=== PATIENT | female | born 1940 | race Caucasian/White ===

== ENCOUNTER → 2017-11-04 | Outpatient (CLI) | payer MEDICARE | END | disposition home or self-care (01) | LOC: LAB 16:42 → LAB SHORT 16:42 | DX: L08.9 Local infection of the skin and subcutaneous tissue, unspecified (principal) | CPT/HCPCS: 87070; 87075; 87205 ==

== ENCOUNTER 2023-08-17 12:50 | Inpatient (IN) | payer MEDICARE ==
[~2023-08-17] VITALS: Ht 152.4 cm; Wt 38.3 kg
[2023-08-17 13:19] LABS: Hematocrit 41.6 % (33.0-51.0); Hemoglobin 13.6 g/dL (11.5-16.0); Mean Corpuscular HGB 29.4 pg (26.0-34.0); Mean Corpuscular HGB Conc 32.7 g/dL (31.5-36.5); Mean Corpuscular Volume 90 fL (80-100); Mean Platelet Volume 9.2 fL (9.1-12.4); Platelet Count 286 K/mm3 (150-400); RDW Coefficient Variation 13.3 % (11.7-14.2); RDW Standard Deviation 44.1 fL (35.1-46.3); Red Blood Cell Count 4.62 M/mm3 (3.80-5.20)
[2023-08-17 13:37] LABS: Albumin, Blood 3.6 g/dL (3.4-5.0); Albumin/Globulin Ratio 1.3 (0.8-1.8); Bilirubin, Total 0.8 mg/dL (0.1-1.0); Bun/Creatinine Ratio 24.1 (12.0-20.0); Calcium, Blood 9.2 mg/dL (8.5-10.1); Creatinine, Blood 1.16 mg/dL (0.40-1.00); Globulin, Blood 2.8 g/dL (2.2-4.0); Potassium, Blood 4.4 mmol/L (3.5-5.5); Total Protein, Blood 6.4 g/dL (6.4-8.2)
[2023-08-17 13:41] LABS: BASOPHILS ABSOLUTE MAN 0.15 K/mm3 (0.00-0.23); BASOPHILS PERCENT MAN 1 % (0-2); EOSINOPHILS PERCENT MAN 0 % (0-6); LYMPHOCYTES ABSOLUTE MAN 5.77 K/mm3 (0.84-5.20); LYMPHOCYTES PERCENT MAN 38 % (21-46); MONOCYTES PERCENT MAN 2 % (4-13); NEUTROPHILS ABSOLUTE MAN 8.96 K/mm3 (1.96-9.15); SEG NEUTROPHILS PERCENT MAN 59 % (41-73); TOTAL CELLS COUNTED 100
[2023-08-17] MEDS ORDERED: Furosemide 10 MG / ML 2ML Vial IV ONE (15:10)
[2023-08-17] MEDS ORDERED: Furosemide 10 MG / ML 2ML Vial IV STA (16:08)
[2023-08-17] MEDS ORDERED: FLU VACC QS2023-24(6MOS UP)/PF 60 MCG/0.5 ML SYRINGE IM SCH (16:10)
[2023-08-17] MEDS ORDERED: Ondansetron HCl 2 MG / ML 2ML Vial IV PRN (16:15)
[2023-08-17] MEDS ORDERED: Acetaminophen 325 MG TABLET PO PRN (16:15)
[2023-08-17 17:48] VITALS: BP 157/118
--- NOTE | 2023-08-17 18:34 | NUR ---
ER ADMIT Patient admitted for Acute CHF. IV Lasix administred in the ER. Patient alert & oriented x4, independent in the rooms. Lungs clear, no SOB noted. BLE +2 pitting edema, capillary refill >3sec. No other skin issues noted on extremities. Patient declined skin check, said she is continent and has no skin issues. Explained [facility] admit policies, patient verbalized understanding. Telemetry in place, Sinus Tachy. BP & HR high. Patient rider sno medical history, or home medication list. Will continue plan of care.
[2023-08-17 20:38] VITALS: BP 151/92
[2023-08-18 03:25] VITALS: BP 145/82
--- NOTE | 2023-08-18 04:23 | NUR ---
END OF SHIFT SUMMARY PT A&O x4, VSS, AFEBRILE, PT ON RA. RESP RATE EVEN AND UNLABORED. PT DENIED CHEST PAIN, SOME SOB PRESENT WITH ACTIVITY. PT AMBULATES WITH A STEADY GAIT TO THE BATHROOM, WITHOUT A DEVICE. PT PLEASANT AND COOPERATIVE WITH CARE PROVIDED. NO C/O PAIN OR DISCOMFORT. PT APPEARED TO BE SLEEPING PEACEFULLY DURING HOURLY SAFETY CHECKS. PT ON TELEMETRY SINUS TACHY WITH HR AT 104 BPM. PT's TROPONIN LEVEL 143 AT 1859 ON 08/17/23. ATTENDING PHYSICIAN NOTIFIED OF CRITICAL ELEVATED TROPONIN LEVEL. 0055 ON 08/18/23: LAB CALLED WITH A CRITICAL LAB VALUE FOR TROPONIN LEVEL WAS 154. DR. HIGH WAS INFORMED. PT CONTINUES TO BE ASYMPTOMATIC, WCTM FOR ANY CHANGES IN PT'S CONDITION. PT ABLE TO MAKE NEEDS KNOWN, CALL LIGHT WITHIN REACH.
[2023-08-18 07:11] VITALS: BP 150/80
[2023-08-18 08:32] LABS: Albumin, Blood 3.2 g/dL (3.4-5.0); Anion Gap 4 mmol/L (6-16); Blood Urea Nitrogen 30 mg/dL (8-24); Bun/Creatinine Ratio 22.7 (12.0-20.0); CO2, Blood 27 mmol/L (21-32); Calcium, Blood 9.1 mg/dL (8.5-10.1); Chloride, Blood 108 mmol/L (98-108); Creatinine, Blood 1.32 mg/dL (0.40-1.00); Glomerular Filtration Rate 40 (60-); Glucose, Blood 102 mg/dL (70-99); Magnesium, Blood 2.2 mg/dL (1.6-2.4); Potassium, Blood 3.8 mmol/L (3.5-5.5); Sodium, Blood 139 mmol/L (136-145)
[2023-08-18] MEDS ORDERED: Enoxaparin 30 MG/0.3 ML SYR SC SCH (09:00)
[2023-08-18] MEDS ORDERED: Furosemide 10 MG/ML 4ML Vial IV SCH (09:00)
[2023-08-18 15:44] VITALS: BP 152/100
[2023-08-18] MEDS ORDERED: Potassium Chloride 20 MEQ/15 ML UDC PO STA (16:20)
[2023-08-18] MEDS ORDERED: Furosemide 10 MG / ML 2ML Vial IV ONE (16:25)
--- NOTE | 2023-08-18 18:09 | NUR ---
SHIFT SUMMARY PATIENT ALERT AND INTERACTIVE. PATIENT INDEPENDENT IN THE ROOM. PATIENT DENIES ANY CHEST PAIN, BUT HAS SOME SOB WITH EXCERTION BACK FROM THE BATHROOM. PATIENT STATES THAT THIS HAS BEEN GOING ON FOR A COUPLE OF WEEKS AT HOME. PATIENT STATES THAT SHE FEELS LIKE SHE IS BREATHING BETTER TODAY AND A LITTLER EASIER TO GET AROUND. ECHO SHOWING PATIENT TO HAVE A LOW EF AND AORTIC STENOSIS. DR MARSHALL AWARE AND ATTEMPTING TO HAVE PATIENT TRANSFERED FOR FURTHER CARE. FAMILY NOTIFIED OF NEED TO TRANSFER BY DR. MARSHALL.
[2023-08-18 19:06] VITALS: BP 138/91
[2023-08-19 02:47] VITALS: BP 150/91
--- NOTE | 2023-08-19 04:28 | NUR ---
END OF SHIFT SUMMARY PT A&O x4, VSS, AFEBRILE, PT ON RA. PT STATED THAT SHE FEELS THOUGH HER SOB HAS IMPROVED. UPON ARRIVAL TO BED SIDE SHIFT REPORT, PT's SON WAS AT BEDSIDE VISITING. PT DENIED CHEST PAIN, PT CONTINUES TO HAVE SOME SOB WITH ACTIVITY, BUT ABLE TO NOT FEEL OUT OF BREATHE WHEN TALKING. PT ON TELEMETRY, SINUS TACH AT 105 BPM. NO CARDIAC EVENTS OVERNIGHT. PT SLEPT WELL THROUGHOUT THE NIGHT. PT ON WAITING LIST TO BE TRANSFERED TO A DIFFERENT HOSPITAL FOR A TRANSCATHETER AORTIC VALVE REPLACEMENT (TAVR). STRICT I'S & O'S, AND DAILY WEIGHT. PT CALM AND COOPERATIVE WITH CARE PROVIDED. CALL LIGHT WITHIN REACH, WCTM.
[2023-08-19 06:07] LABS: Albumin, Blood 3.2 g/dL (3.4-5.0); Anion Gap 5 mmol/L (6-16); Blood Urea Nitrogen 29 mg/dL (8-24); Bun/Creatinine Ratio 23.6 (12.0-20.0); CO2, Blood 28 mmol/L (21-32); Chloride, Blood 107 mmol/L (98-108); Creatinine, Blood 1.23 mg/dL (0.40-1.00); Glomerular Filtration Rate 44 (60-); Glucose, Blood 109 mg/dL (70-99); Phosphorus, Blood 3.6 mg/dL (2.5-4.9); Potassium, Blood 3.4 mmol/L (3.5-5.5); Sodium, Blood 140 mmol/L (136-145)
[2023-08-19 07:52] VITALS: BP 163/99
[2023-08-19] MEDS ORDERED: Potassium Chloride 20 MEQ/15 ML UDC PO SCH (09:00)
[2023-08-19 10:42] VITALS: BP 132/81
--- NOTE | 2023-08-19 15:18 | NUR ---
ALL TRANSFER CENTERS IN [place] CALLED AND REQUESTED CRITICAL CARE BED FOR PT. NO BEDS AVAILABLE AT THIS TIME. PT ON WAIT LIST AT [facility] WITH IMAGES SENT, [facility] TOOK INFORMATION DOWN BUT IS ON [facility]. PT ON WAIT LIST AT [facility] AND IMAGES WERE SENT. PT ALSO [place] [facility] [place] NUMBER [place] DR. KANG GIVEN FOR DR. MARSHALL TO CALL AND DO CONSULT.
[2023-08-19 15:19] VITALS: BP 139/96
--- NOTE | 2023-08-19 19:24 | NUR ---
NO ACUTE CHANGES. PT AND SON ARE ANXIOUS FOR UPDATE ON TRANSFER. UNFORTUNATELY THERE IS NO NEW UPDATES THIS SHIFT. PT IS INDEPENDENT IN THE ROOM. SOME SOB WITH AMBULATION BUT REPORTS NOTHING LIKE IT HAD BEEN. ALERT AND ORIENTED X4.
[2023-08-19 19:26] VITALS: BP 120/86
[2023-08-20 02:39] VITALS: BP 146/85
--- NOTE | 2023-08-20 04:33 | NUR ---
SHIFT SUMMARY No acute changes this shift. Pt resting comfortably with rounds. VSS. Denies pain. Resp even nonlabored on RA. LSCTA. Awaiting hospital transfer for TAVR. Pain and safety maintained. Will continue to monitor this shift.
[2023-08-20 05:53] LABS: Albumin, Blood 3.1 g/dL (3.4-5.0); Anion Gap 2 mmol/L (6-16); Blood Urea Nitrogen 33 mg/dL (8-24); Bun/Creatinine Ratio 21.3 (12.0-20.0); CO2, Blood 32 mmol/L (21-32); Calcium, Blood 8.9 mg/dL (8.5-10.1); Chloride, Blood 107 mmol/L (98-108); Creatinine, Blood 1.55 mg/dL (0.40-1.00); Glomerular Filtration Rate 33 (60-); Glucose, Blood 114 mg/dL (70-99); Phosphorus, Blood 3.6 mg/dL (2.5-4.9); Potassium, Blood 3.7 mmol/L (3.5-5.5); Sodium, Blood 141 mmol/L (136-145)
[2023-08-20 07:41] VITALS: BP 142/98
[2023-08-20] MEDS ORDERED: Thiamine HCl 100 MG Tab PO ONE (13:20)
[2023-08-20 15:45] VITALS: BP 152/88
[2023-08-20] MEDS ORDERED: Metoprolol Succinate 25 MG TABCR PO SCH (16:00)
[2023-08-20] MEDS ORDERED: Empagliflozin 10 MG TAB PO SCH (16:00)
--- NOTE | 2023-08-20 17:49 | NUR ---
SHIFT SUMMARY: PT IS A PLEASANT AND COOPERATIVE 83 YEAR OLD FEMALE HERE FOR CHF. SHE IS ABLE TO SPEAK WHOLE SENTENCES WITHOUT BECOMING SHORT OF BREATH AND HAS BEEN AMBULATING TO THE RESTROOM. SHE STILL CONTINUES TO EXPRESS SHORTNESS OF BREATH, BUT STATES THAT IT IS IMPROVED. HER SONS AT BEEN WITH HER THE MAJORITY OF THE DAY THEY AWAIT A WORD FOR POSSIBLE TRANSPORT TO A [facility] FOR A TAVR PROCEDURE FOR HER AORTIC STENOSIS. SHE IS IN BED EATING DINNER, CALL LIGHT WITHIN REACH, AND NO SIGNS OR SYMPTOMS OF DISTRESS. PLAN OF CARE ONGOING.
[2023-08-20 19:25] VITALS: BP 128/79
[2023-08-21 03:24] VITALS: BP 136/81
--- NOTE | 2023-08-21 05:16 | NUR ---
SHIFT SUMMARY Pt remains A&O this shift. VSS. Denies pain. Resp even nonlabored on RA. Up to bathroom independently. Voiding without difficulty. 1200ml fluid restriction. Awaiting hospital transfer for TAVR.
[2023-08-21 06:55] LABS: Magnesium, Blood 2.3 mg/dL (1.6-2.4)
[2023-08-21 06:56] LABS: Bun/Creatinine Ratio 23.7 (12.0-20.0); Calcium, Blood 9.1 mg/dL (8.5-10.1); Creatinine, Blood 1.39 mg/dL (0.40-1.00); Potassium, Blood 3.6 mmol/L (3.5-5.5)
[2023-08-21 07:38] VITALS: BP 148/91
[2023-08-21] MEDS ORDERED: Furosemide 40 MG Tab PO SCH (09:00)
[2023-08-21] MEDS ORDERED: Heparin Sodium,Porcine 5,000 UNIT/0.5 ML SDV SC SCH (09:00)
[2023-08-21] MEDS ORDERED: Lisinopril 5 MG Tab PO SCH (09:00)
[2023-08-21] MEDS ORDERED: Furosemide 20 MG Tab PO SCH (09:00)
[2023-08-21] MEDS ORDERED: Thiamine HCl 100 MG Tab PO SCH (09:00)
[2023-08-21 14:47] VITALS: BP 128/76
[2023-08-21 16:24] VITALS: BP 128/76
--- NOTE | 2023-08-21 16:47 | NUR ---
CALLED AND SPOKE WITH THE WAREHOUSE ATTENDANT HOOD AT [facility]. GAVE HER REPORT ON THE PATIENT. HOOD IS REQUESTING THAT TIME OF TRANSPORT BE NOTIFIED TO THEM; ALONG WITH UPDATED REPORT AT TIME OF DISCHARGE BE GIVEN TO THE RN ASSUME CARE OF PATIENT.
[2023-08-21 16:50] VITALS: BP 128/76
--- NOTE | 2023-08-21 18:45 | NUR ---
DISCHARGE NOTE: MEDICAL TRANSPORT ARRIVED FOR THE PATIENT AT 1745 TO BE TAKEN TO [facility] FOR A TAVR PROCEDURE. PATIENT WAS ABLE TO SELF TRANSFER INTO THE [facility], HER SONS COLLECTED HER BELONGINGS, AND TELE WAS REMOVED AND SENT BACK. PAPERWORK GIVEN TO MEDICAL TRANSPORTERS, NO SIGNS OR SYMPTOMS OF DISTRESS DURING DISCHARGE. CALL MADE TO AML ANALYST MEGAN AT [facility] TO NOTIFY OF TRANSFER.
== END 2023-08-21 17:45 | disposition short-term general hospital (02) | DRG 281 ==
LOC: ER 12:50 → MEDS 12:59
PROVIDERS: Internal Medicine; Physician Assistant; ADMIT Internal Medicine
DX: I50.21 Acute systolic (congestive) heart failure (principal); I21.A1 Myocardial infarction type 2; Z68.1 Body mass index [BMI] 19.9 or less, adult; D72.829 Elevated white blood cell count, unspecified; N18.30 Chronic kidney disease, stage 3 unspecified; Z66 Do not resuscitate; R63.4 Abnormal weight loss; I35.0 Nonrheumatic aortic (valve) stenosis; Z90.710 Acquired absence of both cervix and uterus; Z90.722 Acquired absence of ovaries, bilateral; Z87.891 Personal history of nicotine dependence
CPT/HCPCS: 36415; 71046; 71260; 80048; 80053; 80069; 83735; 83880; 84100; 84145; 84443; 84484; 85025; 85379; 93005; 93010; 93306; 96372; 96374-59; 96376; 96376-59; 97116; 97161; 97530; 99285-25; A9270; G0378; J1644; J1650; J1940; Q9967

== ENCOUNTER 2023-12-12 11:10 | Emergency (ER) | payer MEDICARE ==
[~2023-12-12] VITALS: Ht 152.4 cm; Wt 39.5 kg
[2023-12-12 12:27] LABS: Mean Corpuscular HGB 30.6 pg (26.0-34.0); Mean Corpuscular HGB Conc 32.4 g/dL (31.5-36.5); Mean Corpuscular Volume 94 fL (80-100); Mean Platelet Volume 8.9 fL (9.1-12.4); Platelet Count 226 K/mm3 (150-400); RDW Coefficient Variation 13.1 % (11.7-14.2); RDW Standard Deviation 44.8 fL (35.1-46.3); White Blood Cell Count 10.59 K/mm3 (4.00-11.30)
[2023-12-12] MEDS ORDERED: SPIR25 PO (12:38)
[2023-12-12] MEDS ORDERED: CARV3.125 PO (12:38)
[2023-12-12] MEDS ORDERED: CLOP75 PO (12:38)
[2023-12-12] MEDS ORDERED: LOSA25 PO (12:38)
[2023-12-12] MEDS ORDERED: Aspir 8181 MG PO (12:38)
[2023-12-12 12:51] LABS: Albumin, Blood 3.8 g/dL (3.4-5.0); Albumin/Globulin Ratio 1.1 (0.8-1.8); Bilirubin, Total 0.2 mg/dL (0.1-1.0); Bun/Creatinine Ratio 29.8 (12.0-20.0); Calcium, Blood 9.4 mg/dL (8.5-10.1); Creatinine, Blood 0.91 mg/dL (0.40-1.00); Globulin, Blood 3.5 g/dL (2.2-4.0); Potassium, Blood 4.3 mmol/L (3.5-5.5); Total Protein, Blood 7.3 g/dL (6.4-8.2)
[2023-12-12 12:56] LABS: BASOPHILS PERCENT MAN 1 % (0-2); EOSINOPHILS ABSOLUTE MAN 0.31 K/mm3 (0.00-0.68); EOSINOPHILS PERCENT MAN 3 % (0-6); LYMPHOCYTES ABSOLUTE MAN 4.55 K/mm3 (0.84-5.20); LYMPHOCYTES PERCENT MAN 43 % (21-46); MONOCYTES ABSOLUTE MAN 0.42 K/mm3 (0.16-1.47); MONOCYTES PERCENT MAN 4 % (4-13); NEUTROPHILS ABSOLUTE MAN 5.18 K/mm3 (1.96-9.15); SEG NEUTROPHILS PERCENT MAN 49 % (41-73); TOTAL CELLS COUNTED 100
[2023-12-12] MEDS ORDERED: Metoprolol Tartrate 1 MG/ML 5 ML VIAL IV ONE (13:10)
[2023-12-12 13:45] VITALS: BP 192/82
== END 2023-12-12 13:48 | disposition home or self-care (01) ==
LOC: ER 11:10
PROVIDERS: Nurse Practitioner
DX: I16.0 Hypertensive urgency (principal); I13.0 Hypertensive heart and chronic kidney disease with heart failure and stage 1 through stage 4 chronic kidney disease, or unspecified chronic kidney disease; N18.30 Chronic kidney disease, stage 3 unspecified; I50.9 Heart failure, unspecified; Z95.2 Presence of prosthetic heart valve; Z87.891 Personal history of nicotine dependence; Z79.82 Long term (current) use of aspirin; Z79.899 Other long term (current) drug therapy
CPT/HCPCS: 80053; 85025; 93005; 93010; 96374; 99283-25